=== PATIENT | female | born 1995 | race Caucasian/White ===

== ENCOUNTER 2016-12-27 14:31 | Inpatient (IN) | payer OTHER ==
[~2016-12-27] VITALS: Ht 172.7 cm; Wt 93.0 kg
[2016-12-27] MEDS ORDERED: PRENATAL TABLE1 EAC2 PO (15:28)
--- NOTE | 2016-12-27 17:21 | History & Physical ---
General Information and HPI MD Statement: I have seen and personally examined EB MASTERSON and documented this H&P. The patient is a 21 year old female at [39] weeks and [2] days gestation who presented with a chief complaint of [ONSET OF LABOR, SROM LIGHT MEC FLUID]. Source of Information: patient, old records Exam Limitations: no limitations History of Present Illness: 21 YO G 5 P 0 CIARA 01/01/2017 PRESENTS FOR OOL AND SROM OF LIGHT MECONIUM @ 13:50 , ISSUES FOR THIS 1.) SMOKER - QUIT W/ + UCG 2.) TRANSFER @ 38 WKS 3.) LIGHT MEC STAINED FLUID Allergies/Medications Allergies: Coded Allergies: bee pollen (SWELLING 12/27/16) Home Med list Vit No.130/Iron/FA ( Tablet) 27 MG IRON-800 MCG TABLET 1 TAB PO DAILY (Reported) Compliance With Home Meds: GOOD Past History dental mechanic History : 5 Para: 0 Last Menstrual Period: 03/20/2016 Estimated Delivery Date: 12/27/2016 Past dental mechanic History: none Medical History Blood Transfusion Hx: No Neurological: NONE EENT: NONE Cardiovascular: NONE Respiratory: SMOKER QUIT W/ + UCG Gastrointestinal: NONE Hepatic: NONE Renal: NONE Musculoskeletal: NONE Psychiatric: NONE Endocrine: NONE Blood Disorders: NONE Cancer(s): NONE 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 10/15/2013 1 ECTOPIC 08/14/2015 Surgical History Pertinent Surgical History: none Past Family/Social History Family History Relations & Conditions if any Relation not specified for: *No pertinent family history Psychosocial History Where do you live? Home Who Do You Live With? spouse Primary Language: Iraqi Smoking Status: Former Smoker ETOH Use: denies use Illicit Drug Use: denies illicit drug use Review of Systems Review of Systems: NEG FRO CARDIAC, PULMONAY, GI COMPLAINTS Exam & Diagnostic Data Last 24 Hrs of Vital Signs/I&O T 98.6 R 16 BP 134/84 P84 P02 99% RA Intake & Output 12/27 1600 03/10 0800 03/10 0000 Intake Total Output Total Balance Patient 205 lb Weight Obstetric Exam Wgt Gained During : 44 Pelvimetry: SHOULD BE ADEQUATE FOR AVERAGE SIZED BABY Dilation (cm): 6 Effacement (%): 100 Station: 0 Membranes: SROM Fluid: light meconium Fundal Height (cm): 38 Multiple Gestation? No Contractions: Q 2 TO 4 Infant #1 - FHR Baseline: 140 Category: 1 Estimated Weight: 7# 4oz Presentation: VTX Patient for Induction? No Physical Exam General Appearance Alert, Oriented X3, Cooperative, Moderate Distress Skin No Significant Lesion Cardiovascular Regular Rate Lungs Normal Air Movement Abdomen Normal Bowel Sounds, Soft, No Tenderness, No Hepatospenomegaly, UTERUS GRAVID F HT 38 CM NONTENDER FHR CAT 1, E F WT 7#4oz CONTXNS Q 3 MIN Neurological Normal Gait, Normal Speech Extremities No Tenderness/Swelling Reproductive (FEMALE) Normal female genitalia, AVGE LOCHIA Labs Blood Type & Rh: O+ Antibody Screen: N Hct/Hgb & Platelets #1: 13.8/41.2 259,000 Hct/Hgb & Platelets #2: 11.3/34 326,000 Rubella: IMM VDRL #1: N VDRL #2: N HbsAg: N HIV #1: N HIV #2 N 1 Hr P 3 Hr PG: N/A Group B Strep: NEG Initial Ultrasound: 06/28/2016 S.D 11 WKS 2/7 - CIARA 01/01/2017 Anatomy Ultrasound: 08/02/2016 S=D=U/S NL ANATOMY ? OPLACENTA PREVIA 09/02/2016 PREVIA RESOLVED Ultrasound for EFW: [id number] 57% 7# 5oz VTX BPP 05/27 Genetic Testing: NL 1ST TRIM SCREEN NEG CF NL MSAFP Assessment/Plan Assessment/Plan: IUP @ TERM- LIGHT MEC FLUID- NEG GR B STR. IN ACTIVE LABOR WANTS EPIDURAL PLAN ADMIT IV FLUID EPIDURAL ANTICIPATE PEDI NOTIFIED OF LT MEC FLUID FOLLOW CLOSELY As Ranked By This Provider Problem List: 1. Active labor at term 2. SROM (spontaneous rupture of membranes) 3. Meconium in amniotic fluid Core Measures/Miscellaneous Vasquez Catheter Date In: 12/27/16 Still Needed? Yes Venous Thromboembolism VTE Risk Factors: / (FALL RISK) VTE Contraindications: Active Bleeding (FALL RISK) VTE Diagnosis: No Beta Karen Is Beta Karen a Home Med? No If No, Why Not? N/A Antibiotics Is Patient on Antibiotics? No Attending MD Review Statement Attending Statement Attending MD Statement: examined this patient, discussed with family, reviewed EMR data (avail), discussed w/nursing Attending Assessment/Plan: Ashley OLGUIN MD
--- NOTE | 2016-12-27 20:55 | Labor & Delivery Summary ---
Delivery Summary Vaginal Delivery: Vaginal: VERTEX SPONTANEOUS Episiotomy/Lacerations: Episiotomy/Lacerations: LACERATIOM Type: SECOND DEGREE VAGINAL RT > LT GRETCHEN-URETHRAL Repair: 3-O VICRYL Anesthesia: EPIDURAL AND LOCAL Placenta: Placenta: spontanteous, normal, 3 vessel Anesthesia: EPIDURAL Baby's Weight: FEMALE 8#7oz 3830 gm Apgars - 1 Min: 9 Apgars - 5 Min: 9 Additional Comments: Pt progressed to fully @ 18:40. Pedi was called in for the delivery due to the thin meconium stained fluid. Once pedi was here @ 19:10 pt began pushing. LV Female infant over second degree laceration, and Rt > LT periurethral lacerations. With delivery of the infant's head, baby's mouth and nasopharynx bulb suctioned on the perineum. Rest of the infant's body delivered 2 19:30. WT 8#7. apgars 9/ 9/ 9. Second degree laceration repaired w/ 3-O vicryl. RT gretchen- urethral closed with 3-0 vicryl. Placenta delivered intact NL configuration and 3 VC. No cervical lacerations. "Annia" RH+ IMMUNE
[2016-12-28 02:28] VITALS: BP 134/80
[2016-12-28 06:52] LABS: ABSOLUTE BASOPHIL COUNT 0 /CUMM (0.0-0.2); ABSOLUTE EOSINOPHIL COUNT 0.1 /CUMM (0.0-0.7); ABSOLUTE GRANULOCYTE CT 13.8 /CUMM (1.4-6.5); ABSOLUTE LYMPH COUNT 1.6 /CUMM (1.2-3.4); ABSOLUTE MONOCYTE COUNT 0.9 /CUMM (0.10-0.60); BASOPHIL % 0.2 % (0.0-2.0); EOSINOPHIL % 0.4 % (0-5); HEMATOCRIT 31.6 % (37-47); MEAN CORPUSCULAR HGB 27.2 PG (27.0-31.0); MEAN CORPUSCULAR HGB CONC 33.1 G/DL (33.0-37.0); MEAN CORPUSCULAR VOLUME 82.4 FL (81.0-99.0); MEAN PLATELET VOLUME 8.7 FL (7.4-10.4); PLATELET COUNT 265 /CUMM (130-400); RBC DISTRIBUTION WIDTH 14.1 % (11.5-14.5); RED BLOOD CELL CT 3.83 /CUMM (4.20-5.40)
[2016-12-28 07:24] LABS: WHITE BLOOD CELL COUNT 16.4 /CUMM (4.8-10.8)
[2016-12-28] MEDS ORDERED: IBUPROFEN800 M1 PO (09:07)
--- NOTE | 2016-12-28 10:04 | PN- Post Delivery/GYN ---
Subjective Subjective: Doing well today - some mm aches in low back and legs from pushing "like an intense gym session" ambulating ok. Voiding fine. Review of Systems: Currently negative Cardiac, pulmonary GI complaints Objective Last 24 Hrs of Vital Signs/I&O Afebrile VSS Vital Signs Date Time Temp Pulse Resp B/P Pulse O2 O2 Flow FiO2 Ox Delivery Rate 12/28 0228 134/80 Physical Exam General Appearance Alert, Oriented X3, Cooperative, No Acute Distress Skin No Significant Lesion Cardiovascular Regular Rate Lungs Clear to Auscultation Abdomen Normal Bowel Sounds, Soft, No Tenderness, No Hepatospenomegaly, Fundus firm nontender 2 FB below umbilicus Neurological Normal Gait, Normal Speech Extremities No Tenderness/Swelling Reproductive (FEMALE) Normal female genitalia, perinuem intact no bruising avge lochia Current Medications: Current Medications Sig/Doyle Start time Last Medication Dose Route Stop Time Status Admin Acetaminophen 650 MG Q4P PRN 12/27 2099 AC PO Bupivacaine HCl 10 ML ONCE ONE 12/27 2099 DC 12/27 SC 12/27 2100 1931 Butorphanol Tartrate 1 MG Q4P PRN 12/27 1545 DC 12/27 IV 1535 Docusate Sodium 100 MG BID PRN 12/27 2099 AC PO Ephedrine 25 MG .STK-MED ONE 12/27 1542 DC IV 12/27 1543 Hydroxyzine HCl 100 MG AT BEDTIME NEED.. 12/27 2100 AC PO Ibuprofen 800 MG Q6P PRN 12/27 2100 AC 12/28 PO 0820 Ketorolac 30 MG ONCE ONE 12/27 2099 DC 12/27 Tromethamine IV 12/27 2100 2000 Lactated Ringer's 1,000 ML Q8H 12/27 1445 DC IV Magnesium Hydroxide 30 ML DAILY PRN 12/27 2100 DC PO 12/28 1001 Methylergonovine 0.2 MG STAT STA 12/27 2054 DC 12/27 Maleate IM 12/28 2055 194 Oxycodone/ 1 TAB Q3P PRN 12/27 2099 AC Acetaminophen PO Oxytocin 20 UNITS Q5H 12/27 2100 DC 12/27 Lactated Ringer's 1,000 ML IV 12/28 0159 1931 Last 24 Hrs of Labs/Simon: Laboratory Tests 12/28/16 0630: CBC w Diff NO MAN DIFF REQ, RBC 3.83 L, MCV 82.4, MCH 27.2, RDW 14.1, MPV 8.7, Gran % 84.0 H, Lymphocytes % 9.8 L, Monocytes % 5.6, Eosinophils % 0.4, Basophils % 0.2, Absolute Granulocytes 13.8 H, Absolute Lymphocytes 1.6, Absolute Monocytes 0.9 H, Absolute Eosinophils 0.1, Absolute Basophils 0, PUBS MCHC 33.1 Microbiology 12/27 2208 URINE ROUT: Urine Culture - CAN Cancelled: DUPLICATE 12/27 2029 URINE ROUT: Urine Culture - RES Assessment/Plan Assessment/Plan Stable PPD #1 Routine PP care, breast feeding support Problem List: 1. Active labor at term 2. SROM (spontaneous rupture of membranes) 3. Meconium in amniotic fluid 4. Term of female Attending MD Review Statement Attending Statement Attending MD Statement: examined this patient, discussed with family, reviewed EMR data (avail), discussed with nursing Attending Assessment/Plan: Ashley Null MD
--- NOTE | 2016-12-29 12:27 | PN- Post Delivery/GYN ---
Subjective Subjective: Doing well no complaints, ready for discharge home Review of Systems: Neg for Cardiac Pulmonary GI complaints Objective Last 24 Hrs of Vital Signs/I&O Afebrile VSS Physical Exam General Appearance Alert, Oriented X3, Cooperative, No Acute Distress Cardiovascular Regular Rate Lungs Normal Air Movement Abdomen Normal Bowel Sounds, Soft, No Tenderness, No Hepatospenomegaly, Uterus firm nontender 3 FB below umbilicus Neurological Normal Gait, Normal Speech Extremities No Tenderness/Swelling Reproductive (FEMALE) Normal female genitalia, avge lochia Current Medications: Current Medications Sig/Doyle Start time Last Medication Dose Route Stop Time Status Admin Acetaminophen 650 MG Q4P PRN 12/27 2099 DCD PO Docusate Sodium 100 MG .STK-MED ONE 12/28 2130 DC PO 12/29 2131 Docusate Sodium 100 MG BID PRN 12/27 2099 DCD 12/28 PO 2140 Hydroxyzine HCl 100 MG AT BEDTIME NEED.. 12/27 2099 DCD PO Ibuprofen 800 MG .STK-MED ONE 12/28 2131 DC PO 12/28 213 Ibuprofen 800 MG .STK-MED ONE 12/28 1518 DC PO 12/28 1519 Ibuprofen 800 MG Q6P PRN 12/27 2099 DCD 12/29 PO 0611 Oxycodone/ 1 TAB Q3P PRN 12/27 2100 DCD Acetaminophen PO Assessment/Plan Assessment/Plan Stable PPD #2 discharge home f/up 2 and 6 wks Rx given Instructions given Problem List: 1. SROM (spontaneous rupture of membranes) 2. Meconium in amniotic fluid 3. Term of female 4. Active labor at term Attending MD Review Statement Attending Statement Attending MD Statement: examined this patient, discussed with family, reviewed EMR data (avail), discussed with nursing Attending Assessment/Plan: Ashley Null MD
== END 2016-12-29 10:30 | DRG 560 ==
LOC: CBCO 14:31 → GNO 14:38
PROVIDERS: ADMIT Obstetrics & Gynecology
PROC: 10E0XZZ Delivery of Products of Conception, External Approach (ICD-10-PCS; principal; 2016-12-27)
PROC: 0KQM0ZZ Repair Perineum Muscle, Open Approach (ICD-10-PCS; principal; 2016-12-27)
DX: O70.1 Second degree perineal laceration during delivery (principal); Z3A.39 39 weeks gestation of pregnancy; Z37.0 Single live birth; O71.82 Other specified trauma to perineum and vulva
CPT/HCPCS: GNOP; GNOS; 36415; 81001; 81003; 82570; 84112; 87086; 88307; G0463; J0595; J1885; J2210; J7120